=== PATIENT | female | born 1950 | race African-American/Black ===

== ENCOUNTER 2017-03-12 18:10 | Emergency (ER) | payer MEDICARE, OTHER ==
[2017-03-12] MEDS: LIDOCAINE WITH 8.4% SOD BICARB 3 ML DISP.SYRIN. IJ (18:53)
== END 2017-03-12 19:31 | disposition home or self-care (01) ==
LOC: ER 18:10
DX: E11.9 Type 2 diabetes mellitus without complications (principal); S91.311A Laceration without foreign body, right foot, initial encounter; Z88.6 Allergy status to analgesic agent; W26.0XXA Contact with knife, initial encounter; Y93.89 Activity, other specified; Y99.8 Other external cause status; Y92.89 Other specified places as the place of occurrence of the external cause
CPT/HCPCS: 12001; 73630; 99284-25